=== PATIENT | male | born 1985 | race Native Hawaiian/Other Pacific Islander ===

== ENCOUNTER 2017-04-03 10:18 | Emergency (ER) | payer OTHER ==
[2017-04-03 10:23] VITALS: TEMP 98.1; O2SAT 100
--- NOTE | 2017-04-03 10:41 | ED PDOC ---
HPI: Head Injury Time Seen by Provider: 04/03/17 10:22 Chief Complaint (Nursing): Trauma Chief Complaint (Provider): Head injury, fall, no LOC History Per: Patient History/Exam Limitations: no limitations Injury Occurred (Timing): Just Before Arrival Onset/Duration Of Symptoms: Mins Patient States: Fell Striking Head Severity: Mild Additional Complaint(s): Pt states he slipped on snow walking around a corner and hit head on tree. No LOC. Unknow last tetanus. No headache. PT reports localized pain at laceration site. Bleeding now controlled. Past Medical History Reviewed: Historical Data, Nursing Documentation, Vital Signs Vital Signs: Last Vital Signs Temp 98.1 F 04/03/17 10:21 Pulse 76 04/03/17 10:21 Resp 18 04/03/17 10:21 BP 134/80 04/03/17 10:21 Pulse Ox 100 04/03/17 10:21 - Medical History PMH: No Chronic Diseases - Surgical History Surgical History: No Surg Hx - Family History Family History: States: No Known Family Hx - Living Arrangements Living Arrangements: With Family - Social History Current smoker - smoking cessation education provided: No - Allergies Allergies/Adverse Reactions: Allergies Allergy/AdvReac Type Severity Reaction Status Date / Time No Known Allergies Allergy Verified 04/03/17 10:21 Review of Systems ROS Statement: Except As Marked, All Systems Reviewed And Found Negative Constitutional: Negative for: Fever, Chills Skin: Positive for: Other Physical Exam - Reviewed Nursing Documentation Reviewed: Yes Vital Signs Reviewed: Yes - Physical Exam Appears: Positive for: Well, Non-toxic, No Acute Distress Head Exam: Positive for: ATRAUMATIC, NORMAL INSPECTION, NORMOCEPHALIC Skin: Positive for: Warm. Negative for: Normal Color (4 cm laceration, scalp, no active bleeding ) Eye Exam: Positive for: Normal appearance, EOMI, PERRL ENT: Positive for: Normal ENT Inspection Neck: Positive for: Normal, Painless ROM Respiratory: Negative for: Accessory Muscle Use, Respiratory Distress Gastrointestinal/Abdominal: Positive for: Normal Exam, Bowel Sounds, Soft Back: Positive for: Normal Inspection Extremity: Positive for: Normal ROM Neurologic/Psych: Positive for: Alert, triage rn II-XII, Oriented, Mood/Affect, Cerebellar Tests, Gait. Negative for: Motor/Sensory Deficits, Aphasia, Facial Droop - ECG O2 Sat by Pulse Oximetry: 100 Procedures - Laceration/Wound Repair Scalp Wound Length (cm): 5 Wound's Depth, Shape: superficial Wound Explored: no foreign body removed Betadine Prep?: No Wound Repaired With: [place] (#3) Layer Closure?: No Wound Complexity: Simple Disposition - Clinical Impression Clinical Impression: Head injury, Laceration of head, Tetanus toxoid vaccination administered at current visit - Patient ED Disposition Is Patient to be Admitted: No - Disposition Disposition: Routine/Home Disposition Time: 10:39 Condition: GOOD Additional Instructions: Do not get wet for 24-48 hours. Keep clean and dry with antibiotic ointment twice a day. Staple removal in 8-10 days. Instructions: Staple Care (ED)
[2017-04-03 11:04] VITALS: BP 127/81; PULSE 83; RESP 16
== END 2017-04-03 11:30 | disposition home or self-care (01) ==
LOC: H.ER 10:18
DX: S09.90XA Unspecified injury of head, initial encounter (principal); Z23 Encounter for immunization; S01.01XA Laceration without foreign body of scalp, initial encounter; W00.0XXA Fall on same level due to ice and snow, initial encounter